=== PATIENT | female | born 1930 | race Caucasian/White ===

== ENCOUNTER 2020-02-09 13:12 | Inpatient (IN) | payer MEDICARE, OTHER ==
[~2020-02-09] VITALS: Ht 149.9 cm; Wt 59.0 kg
--- NOTE | 2020-02-09 13:30 | NUR ---
PT REC'D TO ER [facility] DAUGHTER SAID SHE WAS MORE ALTERED THAN NOrmal. iv left ac 18 labs drawn and ua in and out vss Addendum: 02/09/20 at 1611 by CARSON famikly at bedside pending admit
[2020-02-09 14:00] LABS: CALCIUM, SERUM 9.5 mg/dL (8.5-10.1); CARBON DIOXIDE 30 mmol/L (21-32); CHLORIDE 103 mmol/L (98-107); GLUCOSE 100 mg/dL (74-106); POTASSIUM 4.2 mmol/L (3.5-5.1); SODIUM SERUM 139 mmol/L (136-145); UREA NITROGEN, BLOOD 27 mg/dL (7-18)
[2020-02-09 14:10] LABS: ALANINE AMINOTRANSFERASE 30 U/L (12-78); ALBUMIN 4.1 g/dL (3.4-5.0); ALKALINE PHOSPHATASE 50 U/L (46-116); ASPARTATE AMINOTRANSFERASE 24 U/L (15-37); BASOPHILS % (AUTO) 0.6 % (0.0-2.0); BILIRUBIN,DIRECT 0.1 mg/dL (0.0-0.2); BILIRUBIN,TOTAL 0.6 mg/dL (0.2-1.0); EOSINOPHILS % (AUTO) 0.5 % (0.0-6.0); HEMATOCRIT 42 % (33-45); LYMPHOCYTES # (AUTO) 1.3 /CMM (0.8-4.8); LYMPHOCYTES % (AUTO) 26.6 % (20.0-44.0); MEAN CORPUSCULAR HGB CONC 33 g/dl (31.0-36.0); MEAN CORPUSCULAR VOLUME 93 fL (82-100); MONOCYTES # (AUTO) 0.3 /CMM (0.1-1.30); MONOCYTES % (AUTO) 5.6 % (2.0-12.0); NEUTROPHILS # (AUTO) 3.2 /CMM (1.8-8.9); NEUTROPHILS % (AUTO) 66.7 % (43.0-81.0); PLATELET COUNT (AUTO) 189 /CMM (150-450); RED BLOOD CELL COUNT(AUTO) 4.55 MIL/uL (4.0-5.2); TOTAL PROTEIN, SERUM 7.6 g/dL (6.4-8.2); WHITE BLOOD COUNT (AUTO) 4.8 K/uL (4.3-11.0)
[2020-02-09 14:35] LABS: SERUM AMMONIA < 10 umol/L (11-32)
--- NOTE | 2020-02-09 14:36 | NUR ---
PT FAMILY HERE NIECE [phone]
[2020-02-09 14:41] LABS: APPEARANCE,URINE Clear (CLEAR); BILIRUBIN,URINE Negative (NEGATIVE); BLOOD, URINE Negative Ery/uL (NEGATIVE); COLOR,URINE Yellow (YELLOW); KETONES,URINE Negative (NEGATIVE); LEUKOCYTE ESTERASE ,URINE Negative (NEGATIVE); NITRITE, URINE Negative (NEGATIVE); PH,URINE 5.5 (5.0-8.0); PROTEIN,URINE Negative (NEGATIVE); UGLUCOSE Negative (NEGATIVE); UROBILINOGEN,URINE 0.2 EU/dL (0.2)
[2020-02-09] MEDS ORDERED: IBAN150T16 PO (16:14)
[2020-02-09] MEDS ORDERED: LORA-259 PO (16:14)
[2020-02-09] MEDS ORDERED: AMLO10TA4 PO (16:14)
[2020-02-09] MEDS ORDERED: MECL-159 PO (16:14)
[2020-02-09] MEDS ORDERED: ACET-2605 PO (16:14)
[2020-02-09] MEDS ORDERED: CLOP75TA15 PO (16:14)
[2020-02-09] MEDS ORDERED: SENN-175 PO (16:14)
[2020-02-09] MEDS ORDERED: SIMV20TA2 PO (16:14)
[2020-02-09] MEDS ORDERED: ASPI-605 PO (16:14)
[2020-02-09] MEDS ORDERED: NABU500T3 PO (16:14)
[2020-02-09] MEDS ORDERED: DONE10TA11 PO (16:14)
[2020-02-09] MEDS ORDERED: BACL10TA PO (16:14)
[2020-02-09] MEDS ORDERED: ISOS60TA4 PO (16:14)
[2020-02-09] MEDS ORDERED: VALS160T2 PO (16:14)
[2020-02-09] MEDS ORDERED: CALC500T29 PO (16:14)
[2020-02-09] MEDS ORDERED: AZEL6DRO5 OP (16:23)
[2020-02-09] MEDS ORDERED: SENNOSIDES 8.6 MG TABLET PO PRN (17:30)
[2020-02-09] MEDS ORDERED: ACETAMINOPHEN 325 MG TABLET PO PRN (17:30)
[2020-02-09] MEDS ORDERED: ONDANSETRON HCL/PF 4 MG/2 ML VIAL IVP PRN (17:30)
[2020-02-09] MEDS ORDERED: HYDROCODONE/APAP 5/325MG 1 EACH TABLET PO PRN (17:30)
[2020-02-09] MEDS ORDERED: TEMAZEPAM 15 MG CAPSULE PO PRN (17:30)
--- NOTE | 2020-02-09 17:58 | NUR ---
205-2 [facility]
--- NOTE | 2020-02-09 19:58 | NUR ---
PATIENT CAME FROM ER AT 1902,AWAKE, A/O X1, CONFUSED. NO SOB NOTED. NO COMPLAIN OF PAIN. CALL LIGHT WITHIN REACH. BED IN LOWEST AND LOCKED POSITION. BED ALARM ON.
[2020-02-09 20:00] VITALS: BP 170/101
--- NOTE | 2020-02-09 20:38 | NUR ---
PATIENT PULLED THE IV OUT, TIP IS INTACT. NO MORE BLEEDING NOTED. BED ALARM ON.
[2020-02-09] MEDS: SIMVASTATIN 20 MG TABLET PO SCH ×2 (22:00→22:56)
[2020-02-09] MEDS: DONEPEZIL 5 MG TABLET PO SCH ×2 (22:00→22:56)
--- NOTE | 2020-02-09 22:06 | NUR ---
PATIENT BP IS 170/101, HR 68, INFORMED DR DEUTSCH,WAITING FOR THE RESPONSE.
--- NOTE | 2020-02-09 22:20 | NUR ---
CALLED THE PATIENT'S NIECE ARNULFO AND ASKED IF THE PATIENT IS ALLERGIC TO ANY MED AND FOODS AND SHE SAID NO ALLERGIES.
[2020-02-09] MEDS ORDERED: CLONIDINE HCL 0.1 MG TABLET PO PRN (22:30)
--- NOTE | 2020-02-09 23:00 | NUR ---
PATIENT REFUSED TO TAKE HER PILLS.
--- NOTE | 2020-02-09 23:23 | NUR ---
IV REINSERTED BY CHARLOTTE EARL AT THE LEFT HAND D24.AND WRAPPED WITH THE KERLIX DRESSING.
[2020-02-09] MEDS ORDERED: hydrALAZINE HCL IV 20 MG VIAL IV PRN (23:30)
--- NOTE | 2020-02-09 23:30 | NUR ---
BRUISE ON THE RIGHT HAND NOTED AFTER IV REINSERTION, PLACED AN ICE PACK, WILL CONTINUE TO MONITOR.
[2020-02-09 23:52] VITALS: BP 165/85
--- NOTE | 2020-02-10 03:21 | NUR ---
PATIENT WALKED TO THE BATHROOM WITH MINIMAL ASSISTANCE, PATIENT VOIDED AND IS HAVING BM AT THIS MOMENT WITH WILLOW AVILA WATCHING THE PATIENT.
--- NOTE | 2020-02-10 07:40 | NUR ---
MS RN CLOSING NOTES: PATIENT IS RESTING IN BED, AWAKE. NO SOB NOTED. NO COMPLAIN OF PAIN. BED ALARM ON. BED IN LOWEST AND LOCKED POSITION. REFUSED ICE PACK FOR HER RIGHT HAND AT THIS TIME. STILL NO IV AT THIS TIME ENDORSED TO MAURO EARL. PATIENT IS CALM.
[2020-02-10 08:00] VITALS: BP 145/80
--- NOTE | 2020-02-10 08:00 | NUR ---
RN NOTES RECEIVED PATIENT IN THE BED RESTING, AROUSE WHEN CALLED NAME OR TOUCHED, NO ACUTE RESPIRATORY DISTRESS, PATIENT REFUSED BREAKFAST, V/S STABLE, TURN AND REPOSTION SELF IN THE BED, IV ACCESS ON RIGHT FA INTACT, ADMINISTERED SCHEDULED MEDICATION WITH ORANGE JUICE, PATIENT USING DIAPER, SAFETY PRECAUTION MAINTAINED ALL THE TIME.
[2020-02-10 09:21] LABS: BASOPHILS % (AUTO) 0.3 % (0.0-2.0); EOSINOPHILS % (AUTO) 0.1 % (0.0-6.0); HEMATOCRIT 40 % (33-45); HEMOGLOBIN 13.6 g/dL (11.5-14.8); LYMPHOCYTES # (AUTO) 1.1 /CMM (0.8-4.8); LYMPHOCYTES % (AUTO) 17.3 % (20.0-44.0); MEAN CORPUSCULAR HGB CONC 34 g/dl (31.0-36.0); MEAN CORPUSCULAR VOLUME 91 fL (82-100); MONOCYTES # (AUTO) 0.4 /CMM (0.1-1.30); MONOCYTES % (AUTO) 6.6 % (2.0-12.0); NEUTROPHILS # (AUTO) 4.7 /CMM (1.8-8.9); NEUTROPHILS % (AUTO) 75.7 % (43.0-81.0); PLATELET COUNT (AUTO) 177 /CMM (150-450); RED BLOOD CELL COUNT(AUTO) 4.36 MIL/uL (4.0-5.2); WHITE BLOOD COUNT (AUTO) 6.2 K/uL (4.3-11.0)
[2020-02-10 09:47] LABS: CALCIUM, SERUM 9.2 mg/dL (8.5-10.1); MAGNESIUM 1.7 mg/dL (1.8-2.4); PHOSPHORUS 4.1 mg/dL (2.5-4.9); POTASSIUM 3.7 mmol/L (3.5-5.1)
[2020-02-10 10:09] LABS: THYROID STIMULATING HORMONE 0.776 uIU/mL (0.358-3.74)
[2020-02-10] MEDS: VALSARTAN 80 MG TABLET PO SCH (11:02)
[2020-02-10] MEDS: CLOPIDOGREL BISULFATE 75 MG TABLET PO SCH (11:02)
[2020-02-10] MEDS: CALCIUM CARBONATE (1250) 500 MG TABLET PO SCH (11:03)
[2020-02-10] MEDS: ASPIRIN EC 81 MG TABLET.DR PO SCH (11:03)
[2020-02-10] MEDS: PANTOPRAZOLE 40 MG TABLET.DR PO SCH (11:03)
[2020-02-10] MEDS: ISOSORBIDE MONONITRATE (30MG) 30 MG TAB.SR.24H PO SCH (11:03)
[2020-02-10] MEDS: AMLODIPINE BESYLATE 10 MG TABLET PO SCH (11:04)
--- NOTE | 2020-02-10 12:00 | NUR ---
RN NOTES SEEN HOSPITALIST PLAN IS REPLACEMENT SNF UNABLE TO SELF CARE, DEMENTIA, FAMILY NEXT TO THE BED, REFUSED LUNCH ALSO. PATIENT STATE "I EAT ALREADY, SOMEBODY OFFER ME FOOD". SAFETY PRECAUTION MAINTAINED ALL THE TIME.
--- NOTE | 2020-02-10 14:00 | NUR ---
RN NOTES MG 1.7 GET ORDER PER HOSPITALIST 1 G ORDER TAKEN AND CARRIED OUT.
[2020-02-10] MEDS ORDERED: Magnesium 1GM/D5W 100ML PREMIX 100 ML IV SCH (15:00)
[2020-02-10 16:00] VITALS: BP 114/60
--- NOTE | 2020-02-10 18:30 | NUR ---
RN NOTES PATIENT STILL CONFUSED PLEASANTLY, REDIRECTABLE, REFUSED DINNER . IV ACCESS ON RIGHT FA INTACT, PATIENT REDIRECTABLE, TURN AND REPOSTION SELF, CALL LIGHT WITHIN TO REACH, BED ALLARM ON. ENDORSED ONCOMING NURSE FOLLOW PLAN OF COLTON.
--- NOTE | 2020-02-10 20:34 | NUR ---
MS RN NOTES RECEIVED PATIENT AWAKE IN BED WITH NO DISTRESS NOTED. CALL LIGHT WITHIN REACH. NO C/O PAIN OR DISCOMFORT. PERIPHERAL LINE INTACT AND PATENT. ENCOURAGED USE OF CALL LIGHT FOR ASSISTANCE, NEEDS FURTHER INSTRUCTIONS. ROOM FREE OF CLUTTER AND BELONGINGS KEPT NEAR BEDSIDE. BED IN LOW LOCK SETTING WITH BED ALARM ON AND FUNCTIONING PROPERLY. WILL CONTINUE TO MONITOR
[2020-02-10] MEDS: DONEPEZIL 5 MG TABLET PO SCH (22:00)
[2020-02-10] MEDS: SIMVASTATIN 20 MG TABLET PO SCH (22:00)
--- NOTE | 2020-02-11 06:25 | NUR ---
MS RN NOTES PATIENT ASLEEP IN BED WITH NO DISTRESS NOTED. CALL LIGHT WITHIN REACH. REFUSED ALL DUE MEDS DESPITE CONTINUED ENCOURAGEMENT. NO C/O PAIN OR DISCOMFORT. PERIPHERAL LINE INTACT AND PATENT. BED ALARM ON AND FUNCTIONING PROPERLY. BED IN LOW LOCK SETTING. ALL BELONGINGS KEPT NEAR BEDSIDE. WILL ENDORSE TO ONCOMING SHIFT.
[2020-02-11 08:00] VITALS: BP 128/64
[2020-02-11] MEDS: AMLODIPINE BESYLATE 10 MG TABLET PO SCH (10:44)
[2020-02-11] MEDS: VALSARTAN 80 MG TABLET PO SCH (10:45)
[2020-02-11] MEDS: ASPIRIN EC 81 MG TABLET.DR PO SCH (10:45)
[2020-02-11] MEDS: CALCIUM CARBONATE (1250) 500 MG TABLET PO SCH (10:45)
[2020-02-11] MEDS: CLOPIDOGREL BISULFATE 75 MG TABLET PO SCH (10:46)
[2020-02-11] MEDS: ISOSORBIDE MONONITRATE (30MG) 30 MG TAB.SR.24H PO SCH (10:46)
[2020-02-11] MEDS: PANTOPRAZOLE 40 MG TABLET.DR PO SCH (10:47)
[2020-02-11 16:00] VITALS: BP 156/81
[2020-02-11 17:39] VITALS: BP 156/80
--- NOTE | 2020-02-11 17:41 | NUR ---
CHEMICAL PROJECT ENGINEER NOTES PATIENT DISCHARGE AT THIS TIME GOING BOARD AND CARE. PATIENT A/O X1/2, PLEASANTLY CONFUSED. AMBULATORY, USING BATHROOM WITH ASSIST. REFUSED EAT LUNCH. MED RECONCILIATION AND DISCHARGE ORDER REVIEWED AND EXPLAINED TO PATIENT. FAMILY AWARE OF DISCHARGE PLANING. BELONGING WITH THE PATIENT. PATIENT SIGN PAPERWORK. PAPERWORK AND PRESCRIPTION HANDED TO THE AMBULANCE PERONEAL. PATIENT MANAGER GENERAL BY AMBULANCE.
== END 2020-02-11 17:52 | disposition home or self-care (01) | DRG 640 ==
LOC: ER 13:13 → MEDSG2 18:12
PROVIDERS: ADMIT Nurse Practitioner Acute Care; ATTEND Internal Medicine
DX: E86.0 Dehydration (principal); G93.41 Metabolic encephalopathy; F03.90 Unspecified dementia, unspecified severity, without behavioral disturbance, psychotic disturbance, mood disturbance, and anxiety; E78.5 Hyperlipidemia, unspecified; Z95.5 Presence of coronary angioplasty implant and graft; I25.10 Atherosclerotic heart disease of native coronary artery without angina pectoris; Z79.82 Long term (current) use of aspirin; Z79.02 Long term (current) use of antithrombotics/antiplatelets; Z79.899 Other long term (current) drug therapy; R62.7 Adult failure to thrive; M81.0 Age-related osteoporosis without current pathological fracture; E66.9 Obesity, unspecified; M20.30 Hallux varus (acquired), unspecified foot; I10 Essential (primary) hypertension; Z68.26 Body mass index [BMI] 26.0-26.9, adult
CPT/HCPCS: 36415; 70450-TC; 71045-TC; 80048-TC; 80061-TC; 80076-TC; 81000-TC; 82140-TC; 83605-TC; 83735-TC; 84100-TC; 84443-TC; 84484-TC; 85025-TC; 87081-TC; 87086-TC; 93307-TC; 97116-TC; 97530-TC; G0378; J0360; J3475; J7030